=== PATIENT | female | born 1950 | race Caucasian/White ===

== ENCOUNTER 2017-03-14 18:03 | Emergency (ER) | payer MEDICARE, OTHER ==
[2017-03-14] MEDS ORDERED: NS 0.9% 1000 ML* 1,000 ML IV ONE (19:27)
[2017-03-14] MEDS ORDERED: Vancomycin(*) 1,000 MG in NS 0.9% 250 ML* 250 ML IVPB ONE (19:27)
[2017-03-14 19:46] LABS: Hematocrit 31 % (35-47); Hemoglobin 10.2 g/dl (12.0-16.0); Mean Corpuscular HGB Conc 32 g/dl (31-36); Mean Corpuscular Hemoglobin 27 pg (27-31); Mean Corpuscular Volume 84 fL (80-97); Mean Platelet Volume 8 um3 (7.4-10.4); Red Blood Count 3.74 10^6/ul (4.0-5.4); Red Cell Distribution Width 17 % (10.5-15); White Blood Count 6.8 10^3/ul (3.5-10.8)
[2017-03-14 19:50] LABS: Urine Bacteria 2+ (Absent); Urine Bilirubin Negative (Negative); Urine Glucose Negative (Negative); Urine Nitrite Positive (Negative)
[2017-03-14] MEDS ORDERED: NS 0.9% 250 ML* 250 ML ONE (19:50)
[2017-03-14] MEDS ORDERED: Vancomycin(*) 1,000 MG ADVAN IVPB ONE (19:53)
[2017-03-14 19:57] LABS: Albumin 3.2 g/dL (3.2-5.2); C Reactive Protein 56.57 mg/L (< 5.00); Calcium 8.8 mg/dL (8.6-10.3); EGFR African American 158.8 (>60); EGFR Non-African American 123.4 (>60); Total Bilirubin 0.2 mg/dL (0.2-1.0); Total Protein 7.2 g/dL (6.4-8.9)
--- NOTE | 2017-03-14 21:41 | RAD ---
HISTORY: Swelling and pain of anterior right shoulder near axilla COMPARISONS: None TECHNIQUE: Multiple transverse and longitudinal ultrasound images were obtained of the area of right axillary swelling and pain using grayscale and color Doppler imaging. FINDINGS: There is complex fluid collection measuring 7.6 x 3 x 6.4 cm in size. There are echogenic foci with an artifact suggestive of a component of gas. There is no hypervascularity. IMPRESSION: COMPLEX FLUID COLLECTION IN THE AREA OF SWELLING AND PAIN. THIS MEASURES UP TO 7.6 CM IN SIZE. THE DIFFERENTIAL INCLUDES ABSCESS GIVEN THE CLINICAL HISTORY
--- NOTE | 2017-03-14 22:21 | ED ---
Bree Hull Edward, scribed for Guillaume Lee MD on 03/14/17 at 1933 . Skin Complaint - HPI Summary HPI Summary: A 66 y/o F presents to ED with c/o abscess in R axilla onset approx one month ago. Pt states she saw her PCP's VOLTAGE INSPECTOR today who referred her to ED for further evaluation. The area appears erythematous with scabbing. Pert PMHx: paraplegic. - History of Current Complaint Chief Complaint: EDExtremityUpper Time Seen by Provider: 03/14/17 18:36 Stated Complaint: ABSCESS Hx Obtained From: Patient Hx Last Menstrual Period: post menapause Onset/Duration: Started Weeks Ago - approx one month, Still Present Timing: Constant Onset Severity: Moderate Current Severity: Moderate Pain Intensity: 6 Pain Scale Used: 0-10 Numeric Skin Location: Arm - R axilla Character: Pain, Redness - Allergy/Home Medications Allergies/Adverse Reactions: Allergies Allergy/AdvReac Type Severity Reaction Status Date / Time Baclofen Allergy Altered Verified 12/01/16 11:12 Mental Status PMH/Surg Hx/FS Hx/Imm Hx Previously Healthy: No Endocrine/Hematology History: Denies: Hx Diabetes Cardiovascular History: Denies: Hx Congestive Heart Failure, Hx Hypertension - PT DENIES AND NOT ON ANY CARDIAC MEDS, Hx Pacemaker/ICD Respiratory History: Reports: Hx Asthma - childhood ?now per pt, Hx Chronic Obstructive Pulmonary Disease (COPD) - pt unsure GI History: Reports: Other GI Disorders - Prolapsed rectum History: Reports: Other Problems/Disorders - Chronic indwelling cath Denies: Hx Dialysis, Hx Renal Disease Musculoskeletal History: Reports: Hx Back Problems - parapalegic Denies: Hx Osteoporosis Sensory History: Reports: Hx Contacts or Glasses Denies: Hx Hearing Aid Opthamlomology History: Reports: Hx Contacts or Glasses Neurological History: Reports: Hx Spinal Cord Injury - Parapalegic Psychiatric History: Reports: Hx Anxiety, Hx Depression, Hx Panic Disorder - Cancer History Hx Chemotherapy: No - Surgical History Surgery Procedure, Year, and Place: APPENDECTOMY; RODS IN BACK; UFE Hx Anesthesia Reactions: No Infectious Disease History: Yes Infectious Disease History: Reports: 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 Denies: Hx Clostridium Difficile, Hx Hepatitis, Hx Human Immunodeficiency Virus (HIV), Hx Shingles, Hx Tuberculosis, Hx Known/Suspected VRE, History Other Infectious Disease, Traveled Outside the [place] in Last 30 Days - Family History Known Family History: Positive: Cardiac Disease - Social History Occupation: Disabled Lives: Alone Alcohol Use: None Hx Substance Use: No Substance Use Type: Reports: None Hx Tobacco Use: Yes Smoking Status (MU): Former Smoker Type: eCigarettes, Smokeless Tobacco Amount Used/How Often: 3 lights/day Length of Time of Smoking/Using Tobacco: >10 Have You Smoked in the Last Year: Yes Review of Systems Negative: Fever Positive: Other - ABSCESS IN R AXILLA All Other Systems Reviewed And Are Negative: Yes Physical Exam Triage Information Reviewed: Yes Vital Signs On Initial Exam: Initial Vitals Temp Pulse Resp BP Pulse Ox 99.3 F 111 16 141/113 95 03/14/17 18:13 03/14/17 18:13 03/14/17 18:13 03/14/17 18:13 03/14/17 18:13 Vital Signs Reviewed: Yes Appearance: Positive: Well-Appearing, No Pain Distress Skin: Positive: Warm, Skin Color Reflects Adequate Perfusion, Dry, Other - ERYTHEMATOUS AREA, 12-15CM, IN ANTERIOR R AXILLA, SCABBED OVER IN CENTER, INDURATED, TENDER. Head/Face: Positive: Normal Head/Face Inspection Eyes: Positive: Normal ENT: Positive: Normal ENT inspection Neck: Positive: Supple, Nontender Respiratory/Lung Sounds: Positive: Clear to Auscultation, Breath Sounds Present Cardiovascular: Positive: RRR Abdomen Description: Positive: Nontender, Soft Bowel Sounds: Positive: Present Musculoskeletal: Positive: Normal Neurological: Positive: Normal Psychiatric: Positive: Normal, Affect/Mood Appropriate - [place] Coma Scale Coma Scale Total: 15 Diagnostics - Vital Signs Vital Signs Temp Pulse Resp BP Pulse Ox 03/14/17 18:13 99.3 F 111 16 141/113 95 - Laboratory Lab Results: Lab Results 03/14/17 03/14/17 03/14/17 Range/Units 18:24 19:20 19:20 WBC 6.8 (3.5-10.8) 10^3/ul RBC 3.74 L (4.0-5.4) 10^6/ul Hgb 10.2 L (12.0-16.0) g/dl Hct 31 L (35-47) % MCV 84 (80-97) fL MCH 27 (27-31) pg MCHC 32 (31-36) g/dl RDW 17 H (10.5-15) % Plt Count 338 (150-450) 10^3/ul MPV 8 (7.4-10.4) um3 Neut % (Auto) 56.0 (38-83) % Lymph % (Auto) 29.9 (25-47) % [place] % (Auto) 8.1 (1-9) % Eos % (Auto) 5.5 (0-6) % Baso % (Auto) 0.5 (0-2) % Absolute Neuts (auto) 3.8 (1.5-7.7) 10^3/ul Absolute Lymphs (auto) 2.0 (1.0-4.8) 10^3/ul Absolute Monos (auto) 0.6 (0-0.8) 10^3/ul Absolute Eos (auto) 0.4 (0-0.6) 10^3/ul Absolute Basos (auto) 0 (0-0.2) 10^3/ul Absolute Nucleated RBC 0 10^3/ul Nucleated RBC % 0 INR (Anticoag Therapy) 0.95 (0.89-1.11) APTT 32.9 (26.0-36.3) seconds Sodium (133-145) mmol/L Potassium (3.5-5.0) mmol/L Chloride (101-111) mmol/L Carbon Dioxide (22-32) mmol/L Anion Gap (2-11) mmol/L BUN (6-24) mg/dL Creatinine (0.51-0.95) mg/dL Est GFR ( Amer) (>60) Est GFR (Non-Af Amer) (>60) BUN/Creatinine Ratio (8-20) Glucose (70-100) mg/dL Lactic Acid (0.5-2.0) mmol/L Calcium (8.6-10.3) mg/dL Total Bilirubin (0.2-1.0) mg/dL AST (13-39) U/L ALT (7-52) U/L Alkaline Phosphatase (34-104) U/L Troponin I (<0.04) ng/mL C-Reactive Protein (< 5.00) mg/L Total Protein (6.4-8.9) g/dL Albumin (3.2-5.2) g/dL Globulin (2-4) g/dL Albumin/Globulin Ratio (1-3) Urine Color Yellow Urine Appearance Cloudy Urine pH 5.0 (5-9) Ur Specific [place] 1.008 L (1.010-1.030) Urine Protein 1+(30 mg/dl) H (Negative) Urine Ketones Negative (Negative) Urine Blood 3+ H (Negative) Urine Nitrate Positive H (Negative) Urine Bilirubin Negative (Negative) Urine Urobilinogen Negative (Negative) Ur Leukocyte Esterase 3+ H (Negative) Urine WBC (Auto) 3+(>20/hpf) H (Absent) Urine RBC (Auto) 3+(>10/hpf) H (Absent) Ur Squamous Epith Cells Present H (Absent) Urine Bacteria 2+ H (Absent) Hyaline Casts Present H (Absent) Urine Glucose Negative (Negative) 03/14/17 03/14/17 Range/Units 19:20 19:20 WBC (3.5-10.8) 10^3/ul RBC (4.0-5.4) 10^6/ul Hgb (12.0-16.0) g/dl Hct (35-47) % MCV (80-97) fL MCH (27-31) pg MCHC (31-36) g/dl RDW (10.5-15) % Plt Count (150-450) 10^3/ul MPV (7.4-10.4) um3 Neut % (Auto) (38-83) % Lymph % (Auto) (25-47) % [place] % (Auto) (1-9) % Eos % (Auto) (0-6) % Baso % (Auto) (0-2) % Absolute Neuts (auto) (1.5-7.7) 10^3/ul Absolute Lymphs (auto) (1.0-4.8) 10^3/ul Absolute Monos (auto) (0-0.8) 10^3/ul Absolute Eos (auto) (0-0.6) 10^3/ul Absolute Basos (auto) (0-0.2) 10^3/ul Absolute Nucleated RBC 10^3/ul Nucleated RBC % INR (Anticoag Therapy) (0.89-1.11) APTT (26.0-36.3) seconds Sodium 133 (133-145) mmol/L Potassium 3.0 L (3.5-5.0) mmol/L Chloride 97 L (101-111) mmol/L Carbon Dioxide 29 (22-32) mmol/L Anion Gap 7 (2-11) mmol/L BUN 7 (6-24) mg/dL Creatinine 0.50 L (0.51-0.95) mg/dL Est GFR ( Amer) 158.8 (>60) Est GFR (Non-Af Amer) 123.4 (>60) BUN/Creatinine Ratio 14.0 (8-20) Glucose 94 (70-100) mg/dL Lactic Acid 0.8 (0.5-2.0) mmol/L Calcium 8.8 (8.6-10.3) mg/dL Total Bilirubin 0.20 (0.2-1.0) mg/dL AST 17 (13-39) U/L ALT 8 (7-52) U/L Alkaline Phosphatase 96 (34-104) U/L Troponin I 0.00 (<0.04) ng/mL C-Reactive Protein 56.57 H (< 5.00) mg/L Total Protein 7.2 (6.4-8.9) g/dL Albumin 3.2 (3.2-5.2) g/dL Globulin 4.0 (2-4) g/dL Albumin/Globulin Ratio 0.8 L (1-3) Urine Color Urine Appearance Urine pH (5-9) Ur Specific [place] (1.010-1.030) Urine Protein (Negative) Urine Ketones (Negative) Urine Blood (Negative) Urine Nitrate (Negative) Urine Bilirubin (Negative) Urine Urobilinogen (Negative) Ur Leukocyte Esterase (Negative) Urine WBC (Auto) (Absent) Urine RBC (Auto) (Absent) Ur Squamous Epith Cells (Absent) Urine Bacteria (Absent) Hyaline Casts (Absent) Urine Glucose (Negative) Result Diagrams: 03/14/17 19:20 03/14/17 19:20 Lab Statement: Any lab studies that have been ordered have been reviewed, and results considered in the medical decision making process. - EKG 1 EKG Interpretation: 18:55 Normal Sinus Rhythm Course/Dx - Course Course Of Treatment: Ms. Mcnamara has been dealing with an infection in her right axilla for several weeks and is currently on Septra DS. She was seen by her SUPERVISOR POST WAVE on a home visit today and he sent her for evaluation because she is not improving. She was not febrile and her WBC's were normal. An U/S showed a nearly 8 cm abscess. I am hesitant to drain it given the location and I therefore contacted Dr. Jansen who is willing to drain it tomorrow morning in the office. She was a little tachycardic on arrival but that improved with some fluid. - Diagnoses Provider Diagnoses: Abscess - Physician Notifications Discussed Care Of Patient With: Jay Jansen Time Discussed With Above Provider: 21:55 Instructed by Provider To: Other - Will see patient first thing in morning Discharge - Discharge Plan Condition: Stable Disposition: HOME Patient Education Materials: Abscess (ED) Referrals: Jay Jansen MD [Medical Doctor] - 1 Day (Follow up in the morning with Dr. Jansen ) Additional Instructions: Continue taking Bactrim The documentation as recorded by the Bree heath Edward accurately reflects the service I personally performed and the decisions made by me, Guillaume Lee MD.
[2017-03-14 23:08] VITALS: BP 138/61
== END 2017-03-15 02:01 | disposition home or self-care (01) ==
LOC: ED 18:03
DX: L02.411 Cutaneous abscess of right axilla (principal); Z87.891 Personal history of nicotine dependence
CPT/HCPCS: 36415; 80053; 81003; 81015; 83605; 84484; 85025; 85610; 85730; 86140; 87040; 87086; 93005; 99284; J3370

== ENCOUNTER 2018-04-24 06:43 | Emergency (ER) | payer MEDICARE, MEDICAID ==
[~2018-04-24 06:43] MED LIST: EPINEPHrine SYR 0.1 MG/ML* (1:10,000) SYRINGE ONE; Sodium Bicarbonate 8.4%* 50 ML SYRINGE ONE
--- NOTE | 2018-04-24 07:05 | ED ---
Respiratory - HPI Summary HPI Summary: This is kumar Martinez documenting for attending physician Charis Ferrer M.D. Pt is a 67 y/o female BIBA who [facility] pulsel[facility] and unresponsive. She was found by her contracts law professor pulseless and unresponsive, who called 911. When EMS arrived, pt was found asystolic, pulseless, and breathless. She was intubated by the paramedics, and was given 4 rounds of epinephrine. She was not given sodium bicarbonate. Pt was asystolic from the beginning, and was like this for nearly 1 hour. An ABC alert was called LEGAL COMPLIANCE OFFICER at 6:27. Her time of was called at 6:43. Pt is a level 5 caveat due to her unresponsive status. - History of Current Complaint Stated Complaint: ABC ALERT Time Seen by Provider: 04/24/18 06:57 Hx Obtained From: Family/Food Sales Clerk - Food Sales Clerk, EMS Onset/Duration: Sudden Onset, Lasting Hours - Today Aggravating Factor(s): Nothing Alleviating Factor(s): Nothing Associated Signs and Symptoms: SOB - Not breathing - Allergy/Home Medications Allergies/Adverse Reactions: Allergies Allergy/AdvReac Type Severity Reaction Status Date / Time baclofen Allergy Altered Verified 04/24/18 07:16 Mental Status PMH/Surg Hx/FS Hx/Imm Hx Endocrine/Hematology History: Denies: Hx Diabetes Cardiovascular History: Denies: Hx Congestive Heart Failure, Hx Hypertension - PT DENIES AND NOT ON ANY CARDIAC MEDS, Hx Pacemaker/ICD Respiratory History: Reports: Hx Asthma - childhood ?now per pt, Hx Chronic Obstructive Pulmonary Disease (COPD) - pt unsure GI History: Reports: Other GI Disorders - Prolapsed rectum History: Reports: Other Problems/Disorders - Chronic indwelling cath Denies: Hx Dialysis, Hx Renal Disease Musculoskeletal History: Reports: Hx Back Problems - parapalegic Denies: Hx Osteoporosis Sensory History: Reports: Hx Contacts or Glasses Denies: Hx Hearing Aid Opthamlomology History: Reports: Hx Contacts or Glasses Neurological History: Reports: Hx Spinal Cord Injury - Parapalegic Psychiatric History: Reports: Hx Anxiety, Hx Depression, Hx Panic Disorder - Cancer History Hx Chemotherapy: No - Surgical History Surgery Procedure, Year, and Place: APPENDECTOMY; RODS IN BACK; UFE Hx Anesthesia Reactions: No Infectious Disease History: Reports: 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 Denies: Hx Clostridium Difficile, Hx Hepatitis, Hx Human Immunodeficiency Virus (HIV), Hx Shingles, Hx Tuberculosis, Hx Known/Suspected VRE, History Other Infectious Disease - Family History Known Family History: Positive: Cardiac Disease - Social History Alcohol Use: None Hx Substance Use: No Substance Use Type: Reports: None Hx Tobacco Use: Yes Smoking Status (MU): Former Smoker Type: eCigarettes, Smokeless Tobacco Amount Used/How Often: 3 lights/day Length of Time of Smoking/Using Tobacco: >10 Have You Smoked in the Last Year: Yes Review of Systems - ROS Summary Review of Systems Summary: . Positive: Other - Asystolic Positive: Other - Not breathing All Other Systems Reviewed And Are Negative: No Physical Exam - Summary Physical Exam Summary: VITAL SIGNS: Reviewed. GENERAL: Patient is a FEMALE. Patient is in acute respiratory distress. Give 2 IO of sodium bicarbonate and 1 of epinephrine. HEAD AND FACE: No signs of trauma. No ecchymosis, hematomas or skull depressions. No sinus tenderness. EYES: Pupils are fixed and dilated. No corneal reflex. EARS: Ear canals and tympanic membranes are within normal limits. MOUTH: Oropharynx within normal limits. NECK: Supple, trachea is midline, no adenopathy, no JVD, no carotid bruit, no c- spine tenderness, neck with full ROM. CHEST: Symmetric, no tenderness at palpation LUNGS: Breathless. Intubated. Bilateral good breath sounds with bagging. CVS: Pulseless. Asystolic. ABDOMEN: Soft, non-tender. No signs of distention. No rebound no guarding, and no masses palpated. Bowel sounds are normal. EXTREMITIES: IO in right leg seemed to be influctuated. NEURO: Unresponsive SKIN: Dry and warm Triage Information Reviewed: Yes Vital Signs Reviewed: Yes Disposition - Course Course Of Treatment: Pt is a 67 y/o female BIBA who presents to [facility] pulseless and unresponsive. She was found by her contracts law professor pulseless and unresponsive, who called 911. When EMS arrived, pt was found asystolic, pulseless, and breathless. She was intubated by the paramedics, and was given 4 rounds of epinephrine. She was not given sodium bicarbonate. Pt was asystolic from the beginning, and was like this for nearly 1 hour. Pt had no chance to be resuscitated with such agonal rhythm. An ABC alert was called LEGAL COMPLIANCE OFFICER at 6:27. Her time of was called at 6:43. Spoke with biomedical field service engineer Brenda Ashton at 7:00, who said pt can go to [facility] will follow up. Tried to contact next of kin on file at 7:07: Kelsi Mcnamara, the deceaseds sister, at [phone]. Phone number is not in service anymore. Final dx is cardiac arrest. Pt is discharged to [facility] and is . - Diagnoses Provider Diagnoses: Cardiac arrest - Physician Notifications Discussed Care Of Patient With: Brenda Ashton Time Discussed With Above Provider: 07:00 Instructed by Provider To: Other - pt can go to [facility] will follow up Discharge - Sign-Out/Discharge Documenting (check all that apply): Patient Departure - - Discharge Plan Condition: Disposition: Referrals: Suri Lema MD [Primary Care Provider] - - Billing Disposition and Condition Condition: Disposition:
== END 2018-04-24 07:44 | disposition expired ==
LOC: ED 06:53
DX: I46.9 Cardiac arrest, cause unspecified (principal); Z87.891 Personal history of nicotine dependence
CPT/HCPCS: 99285; J0171